=== PATIENT | male | born 1995 | race African-American/Black ===

== ENCOUNTER 2020-07-12 19:07 | Emergency (ER) | payer MEDICAID, OTHER ==
[~2020-07-12] VITALS: Ht 180.3 cm; Wt 76.2 kg
[2020-07-12 19:15] VITALS: BP 115/79
[2020-07-12] MEDS ORDERED: BENZOCAINE 20% 57 GM CAN MC ONE (20:05)
[2020-07-12] MEDS ORDERED: DIBU30OI RC (22:32)
[2020-07-12] MEDS ORDERED: COL100L GT (22:32)
[2020-07-12 23:06] VITALS: BP 120/81
== END 2020-07-12 23:06 | disposition home or self-care (01) ==
LOC: MED 19:07
DX: K64.9 Unspecified hemorrhoids (principal)
CPT/HCPCS: 99283